=== PATIENT | female | born 1985 | race African-American/Black ===

== ENCOUNTER 2016-10-16 18:51 | Emergency (ER) | payer MEDICAID ==
[~2016-10-16] VITALS: Ht 172.7 cm; Wt 63.5 kg
[~2016-10-16 18:51] MED LIST: ANTI-ITCH28 GM TOPIC; BACTRIM DS TAB1 EAC1 ORAL; BENADRYL25 MG ORAL; BENADRYL25 MG PO; CLOTRIMAZOLE30 GM TP; IBUPROFEN800 MG ORAL; KENALOG 0.5% CR15 GM APPLIC; KENALOG IN ORABA1 EA APPLIC; NKM; POLYTRIM OP SOL10 ML OPHTHALM; PREDNISONE10 MG ORAL; PREDNISONE20 M1 PO; PREDNISONE20 MG ORAL; PREDNISONE5 M3 PO; TRAMADOL HCL50 MG ORAL; TRIAMCINOLONE A80 G1 TP; UNOBMED
[2016-10-16 19:25] VITALS: BP 132/85
--- NOTE | 2016-10-16 19:26 | Emergency Room Report ---
History of Present Illness General Chief Complaint: Chest Pain Source: Patient Present Illness HPI Patient is a 31-year-old female who presented for increased cough and difficulty breathing. The patient reported having some increased chest pain. The patient denied any fever. The patient reported having nonproductive cough. She denied any leg pain or swelling. She denied to have being . Allergies: Coded Allergies: No Known Allergies (Unverified , 05/03/13) Patient History Past Medical History: see triage record Reviewed Nursing Documentation: PMH: Agreed, PSxH: Agreed Review of Systems All Other Systems: negative except mentioned in HPI Physical Exam Vital Signs Date Time Temp Pulse Resp B/P Pulse Ox O2 Delivery O2 Flow Rate FiO2 10/16/16 19:08 98.4 90 21 132/85 96 Room Air Sp02 EP Interpretation: reviewed, normal General Appearance: normal inspection, well appearing, no apparent distress, alert, GCS 15 Head: atraumatic ENT: normal ENT inspection, hearing grossly normal, normal voice Neck: normal inspection, full range of motion, supple, no bony tend Respiratory: normal inspection, lungs clear, normal breath sounds, no respiratory distress, no retraction, no wheezing Cardiovascular #1: regular rate, rhythm, no edema Gastrointestinal: normal inspection, normal bowel sounds, non tender, soft, no guarding, no hernia Genitourinary: no CVA tenderness Musculoskeletal: normal inspection, back normal, normal range of motion Neurologic: normal inspection, alert, oriented x3, responsive, tool and die assembler III-XII nml as tested, speech normal Psychiatric: normal inspection, judgement/insight normal, mood/affect normal Skin: normal inspection, normal color, no rash Medical Decision Making Diagnostic Impression: Primary Impression: Bronchitis ER Course Patient presented for chest pain. Differential diagnosis included but was not limited to acute coronary syndrome, pulmonary embolism, pneumonia, aortic dissection, shingles, pneumothorax, aortic dissection, esophageal rupture, pericarditis. Patient's benign exam and does not appear to require any further imaging or laboratory testing at this time. Patient was noted to have good air movement. She was given prescription for albuterol inhaler.The patient is advised to follow up with primary care doctor in 1-2 days. Patient is advised to return if any worsening condition or if any changes in status that are concerning. Last Vital Signs Date Time Temp Pulse Resp B/P Pulse Ox O2 Delivery O2 Flow Rate FiO2 10/16/16 19:08 98.4 90 21 132/85 96 Room Air Status: improved Disposition: HOME, SELF-CARE Condition: Stable Scripts Albuterol Sulfate* (ALBUTEROL SULFATE MDI*) 8.5 Gm Hfa.aer.ad 2 PUFF INH Q4H Y for cough/wheezing, #1 EA 0 Refills Prov: Isaak Flood 10/16/16 Isaak Flood Oct 16, 2016 19:26
[2016-10-16] MEDS ORDERED: ALBUTEROL SULF8.5 GM INH (20:00)
[2016-10-16 20:16] VITALS: BP 132/85
--- NOTE | 2016-10-17 12:56 | Diagnostic Imaging Report ---
Indication: Chest Pain Comparison: None A single view chest radiograph was obtained. Findings: Cardiomediastinal appearance is within normal limits for age. Pulmonary vascularity is appropriate. The diaphragmatic contour is smooth and costophrenic angles are sharp. No pleural effusions are identified. The bones are unremarkable. Impression: No acute findings
== END 2016-10-16 20:16 | disposition home or self-care (01) ==
LOC: EMR 19:40
DX: J40 Bronchitis, not specified as acute or chronic (principal)
CPT/HCPCS: 71010; 99283

== ENCOUNTER 2016-10-23 15:36 | Emergency (ER) | payer MEDICAID ==
[~2016-10-23] VITALS: Ht 172.7 cm; Wt 63.5 kg
[~2016-10-23 15:36] MED LIST changes: +ALBUTEROL SULF8.5 GM INH
[2016-10-23 15:59] VITALS: BP 113/78
[2016-10-23 16:34] VITALS: BP 113/78
[2016-10-23] MEDS ORDERED: PREDNISONE20 MG ORAL (16:34)
--- NOTE | 2016-10-23 16:34 | Emergency Room Report ---
History of Present Illness General Chief Complaint: Skin Rash/Abscess Source: Patient, Medical Record Present Illness HPI 31 YO female presents to the emergency Department complaining of exacerbation of her dyshidrotic eczema on the bilateral palms x1 week. Patient states that her work is requesting a note. Patient reports that she has been using topical medication however states on occasion exacerbation will require oral steroids. Patient denies nausea, vomiting, fevers, chills, recent illness, recent travel or ill contacts.Denies CP, Palpitations, LOC, AMS, dizziness, Changes in Vision, Sensation, paresthesias, or a sudden severe headache. Allergies: Coded Allergies: No Known Allergies (Unverified , 05/03/13) Patient History Past Medical History: see triage record Past Surgical History: none Pertinent Family History: none Last Menstrual Period: 10/12/16 Now: No Immunizations: UTD Reviewed Nursing Documentation: PMH: Agreed, PSxH: Agreed Nursing Documentation-PMH Past Medical History: No History, Except For Review of Systems All Other Systems: negative except mentioned in HPI Physical Exam Vital Signs Date Time Temp Pulse Resp B/P Pulse Ox O2 Delivery O2 Flow Rate FiO2 10/23/16 15:53 97.9 72 16 113/78 100 Room Air Sp02 EP Interpretation: reviewed, normal General Appearance: no apparent distress, alert, GCS 15, non-toxic Head: normocephalic, atraumatic Eyes: bilateral eye PERRL, bilateral eye normal inspection ENT: hearing grossly normal, normal pharynx, no angioedema, normal voice Neck: full range of motion, supple/symm/no masses Respiratory: chest non-tender, lungs clear, normal breath sounds, speaking full sentences Cardiovascular #1: regular rate, rhythm, no edema Rectal: deferred Genitourinary: normal inspection, no CVA tenderness Musculoskeletal: back normal, gait/station normal, normal range of motion, non- tender, no calf tenderness Neurologic: alert, oriented x3, responsive, motor strength/tone normal, sensory intact, speech normal Psychiatric: judgement/insight normal, memory normal, mood/affect normal, no suicidal/homicidal ideation Skin: normal color, no rash, warm/dry, well hydrated, rash - bilateral skin irritation consistent with dishidrotic eczema to the palm bilaterally. Lymphatic: no adenopathy Medical Decision Making PA Attestation Dr. Lott is my supervising Physician whom patient management has been discussed with. Diagnostic Impression: Primary Impression: Dyshidrotic eczema ER Course Pt. presents to the ED c/o exacerbation of dyshidrotic eczema on the palms times one week. She has been using topical medication however states on occasion exacerbation will require oral steroids. Ddx considered but are not limited to cellulitis, scabies, shingles, varicella, dermatitis, urticaria, eczema, tinea, Vital signs: are WNL, pt. is afebrile H&PE are most consistent with dyshidrotic eczema of the bilateral palms in addition to bronchitis ORDERS: none required at this time, the diagnosis is clinical ED INTERVENTIONS: None required at this time. DISCHARGE: At this time pt. is stable for d/c to home. Will provide printed patient care instructions, and any necessary prescriptions. Care plan and follow up instructions have been discussed with the patient prior to discharge. Last Vital Signs Date Time Temp Pulse Resp B/P Pulse Ox O2 Delivery O2 Flow Rate FiO2 10/23/16 15:59 97.9 16 113/78 100 Room Air 10/23/16 15:53 72 Disposition: HOME, SELF-CARE Condition: Stable Scripts Prednisone* (PREDNISONE*) 20 Mg Tablet 40 MG ORAL DAILY for 5 Days, TAB Prov: Argentina Bassett 10/23/16 Patient Instructions: Eczema Additional Instructions: Take medications as directed. Follow up with PCP in 3-5 days Return sooner to ED if new symptoms occur, or current symptoms become worse. Argentina Bassett Oct 23, 2016 16:34
== END 2016-10-23 16:35 | disposition home or self-care (01) ==
LOC: EMR 16:35
DX: L30.1 Dyshidrosis [pompholyx] (principal); J40 Bronchitis, not specified as acute or chronic
CPT/HCPCS: 99282

== ENCOUNTER 2017-01-06 02:29 | Emergency (ER) | payer MEDICAID ==
[~2017-01-06] VITALS: Ht 172.7 cm; Wt 64.9 kg
[2017-01-06] MEDS ORDERED: TRIAMCINOLONE A80 G1 TP (02:56)
[2017-01-06] MEDS ORDERED: PREDNISONE20 MG ORAL (02:56)
--- NOTE | 2017-01-06 02:56 | Emergency Room Report ---
History of Present Illness General Chief Complaint: Skin Rash/Abscess Source: Patient Present Illness HPI Is a 31-year-old female with history of eczema. Is localized to the palm of her hands. Worse when she has lots of stress. She presents with increasing pain and skin feeling for the last 20 hours. Usually treated with steroid cream and steroid. No fever or chills. No nausea no vomiting. Nothing made it better. Touching it made it worse. Allergies: Coded Allergies: No Known Allergies (Unverified , 05/03/13) Patient History Past Medical History: see triage record, old chart reviewed Past Surgical History: other Pertinent Family History: none Social History: Denies: smoking Last Menstrual Period: 2 weeks ago Now: No Immunizations: other Reviewed Nursing Documentation: PMH: Agreed, PSxH: Agreed Review of Systems Eye: Denies: blurred vision, eye pain ENT: Denies: ear pain, nose congestion, throat swelling Respiratory: Denies: cough, shortness of breath Cardiovascular: Denies: chest pain, palpitations Gastrointestinal: Denies: abdominal pain, diarrhea, nausea, vomiting Musculoskeletal: Denies: back pain, joint pain Skin: Reports: dryness, Denies: rash Neurological: Denies: headache, numbness Endocrine: Denies: increased thirst, increased urine Hematologic/Lymphatic: Denies: easy bruising All Other Systems: negative except mentioned in HPI Physical Exam Vital Signs Date Time Temp Pulse Resp B/P Pulse Ox O2 Delivery O2 Flow Rate FiO2 01/06/17 02:37 98.6 90 16 130/89 98 Room Air vitals normal. Sp02 EP Interpretation: reviewed, normal General Appearance: well appearing, no apparent distress, alert Head: normocephalic, atraumatic Eyes: bilateral eye EOMI, bilateral eye PERRL ENT: hearing grossly normal, normal pharynx Neck: full range of motion, supple, no meningismus Respiratory: chest non-tender, lungs clear, normal breath sounds Cardiovascular #1: regular rate, rhythm, no murmur Gastrointestinal: normal bowel sounds, non tender, no mass, no organomegaly, no bruit, non-distended Musculoskeletal: back normal, gait/station normal, normal range of motion, other - palms with skin peeling and irritation Neurologic: alert, oriented x3 Psychiatric: mood/affect normal Skin: warm/dry Medical Decision Making Diagnostic Impression: Primary Impression: Eczema Qualified Codes: L30.9 - Dermatitis, unspecified ER Course Patient with exacerbation of her eczema. No evidence of bacterial infection. We'll discharge home. No evidence of necrotizing fasciitis. Last Vital Signs Date Time Temp Pulse Resp B/P Pulse Ox O2 Delivery O2 Flow Rate FiO2 01/06/17 02:37 98.6 90 16 130/89 98 Room Air Status: improved Disposition: HOME, SELF-CARE Condition: Stable Scripts Triamcinolone Acetonide (TRIAMCINOLONE ACETONIDE) 80 Gm Oint...g. 80 GM TP BID, #80 GM Prov: STEPH QIU M.D. 01/06/17 Prednisone* (PREDNISONE*) 20 Mg Tablet 60 MG ORAL DAILY, #12 TAB Prov: STEPH QIU M.D. 01/06/17 Additional Instructions: Follow up with your DrCarlos in 7 days. Return if worse. STEPH QIU M.D. Jan 06, 2017 02:56
[2017-01-06] MEDS ORDERED: PredniSONE 20mg tab ORAL ONE (03:00)
[2017-01-06 03:06] VITALS: BP 130/89
== END 2017-01-06 03:05 | disposition home or self-care (01) ==
LOC: EMR 03:00
DX: L30.9 Dermatitis, unspecified (principal)
CPT/HCPCS: 99284

== ENCOUNTER 2017-03-13 02:20 | Emergency (ER) | payer MEDICAID ==
[~2017-03-13] VITALS: Ht 175.3 cm; Wt 63.5 kg
[2017-03-13 02:35] VITALS: BP 106/69
[2017-03-13] MEDS ORDERED: PREDNISONE20 MG ORAL (02:54)
[2017-03-13] MEDS ORDERED: TRIAMCINOLONE A15 G2 TP (02:54)
[2017-03-13] MEDS ORDERED: BENADRYL25 MG ORAL (02:54)
[2017-03-13 03:05] VITALS: BP 106/69
--- NOTE | 2017-03-13 03:32 | Emergency Room Report ---
History of Present Illness General Chief Complaint: Skin Rash/Abscess Source: Patient Present Illness HPI 31YOF presents with "eczema flare up" after sun exposure today to hands. Ran out of triamcinolone. States that med usually helps plus benadryl, prednisone. Denies fever/chills. Denies DM, other comorbidities. Allergies: Coded Allergies: No Known Allergies (Unverified , 03/13/17) Patient History Past Medical History: other - eczema Past Surgical History: none Pertinent Family History: none Social History: Denies: alcohol use, drug use, smoking Last Menstrual Period: last week Now: No Immunizations: UTD Reviewed Nursing Documentation: PMH: Agreed, PSxH: Agreed Review of Systems All Other Systems: negative except mentioned in HPI Physical Exam Vital Signs Date Time Temp Pulse Resp B/P Pulse Ox O2 Delivery O2 Flow Rate FiO2 03/13/17 02:24 98.6 108 16 106/69 99 Room Air Sp02 EP Interpretation: reviewed, normal General Appearance: normal inspection, well appearing, no apparent distress, alert, GCS 15, non-toxic Head: normocephalic, atraumatic Eyes: bilateral eye EOMI, bilateral eye PERRL ENT: normal ENT inspection, hearing grossly normal, normal voice Neck: normal inspection, full range of motion, supple, no bony tend Respiratory: normal inspection, lungs clear, normal breath sounds, no respiratory distress, no retraction, no wheezing Cardiovascular #1: regular rate, rhythm, no edema Gastrointestinal: normal inspection, normal bowel sounds, non tender, soft, no guarding, no hernia Genitourinary: no CVA tenderness Musculoskeletal: normal inspection, back normal, normal range of motion, Tasha' s Sign negative Neurologic: normal inspection, alert, oriented x3, responsive, supervisor grading III-XII nml as tested, motor strength/tone normal, speech normal Psychiatric: normal inspection, judgement/insight normal, mood/affect normal Skin: normal inspection, normal color, no rash Lymphatic: normal inspection Medical Decision Making Diagnostic Impression: Primary Impression: Eczema Qualified Codes: L30.9 - Dermatitis, unspecified ER Course 31YOF with eczema flare-up. VSS. Afebrile Meds refilled Rx Prednisone, bendaryl Last Vital Signs Date Time Temp Pulse Resp B/P Pulse Ox O2 Delivery O2 Flow Rate FiO2 03/13/17 03:05 98.6 87 16 106/69 99 Room Air Status: improved Disposition: HOME, SELF-CARE Condition: Improved Scripts Prednisone* (PREDNISONE*) 20 Mg Tablet 40 MG ORAL DAILY for 5 Days, #5 TAB Prov: KERRY ADAIR M.D. 03/13/17 Diphenhydramine Hcl* (BENADRYL*) 25 Mg Capsule 25 MG ORAL Q6H Y for Itching for 7 Days, #30 CAP Prov: KERRY ADAIR M.D. 03/13/17 Triamcinolone Acetonide (TRIAMCINOLONE ACETONIDE) 15 Gm Oint...g. 15 GM TP BID for 7 Days, #1 UNIT Prov: KERRY ADAIR M.D. 03/13/17 KERRY ADAIR M.D. March 13, 2017 03:32
== END 2017-03-13 03:05 | disposition home or self-care (01) ==
LOC: EMR 03:00
DX: L30.9 Dermatitis, unspecified (principal)
CPT/HCPCS: 99284

== ENCOUNTER 2017-04-21 05:10 | Emergency (ER) | payer MEDICAID ==
[~2017-04-21] VITALS: Ht 172.7 cm; Wt 59.0 kg
[~2017-04-21 05:10] MED LIST changes: +TRIAMCINOLONE A15 G2 TP
[2017-04-21 05:25] VITALS: BP 118/75
--- NOTE | 2017-04-21 05:33 | Emergency Room Report ---
History of Present Illness General Chief Complaint: Skin Rash/Abscess Source: Patient Present Illness HPI Is a 31-year-old female with a history of eczema. She presents with exacerbation of her eczema. She also has 2 other complaint. One is of rash to her lip that started yesterday. Another one is a spider bite to her right lower leg. His been ongoing for 3 or 4 days and draining yesterday. No fever chills but no nausea vomiting. No other complaint. Allergies: Coded Allergies: No Known Allergies (Unverified , 03/13/17) Patient History Past Medical History: see triage record, old chart reviewed Past Surgical History: other Pertinent Family History: none Social History: Denies: smoking Last Menstrual Period: April Now: No Immunizations: other Reviewed Nursing Documentation: PMH: Agreed, PSxH: Agreed Review of Systems Eye: Denies: blurred vision, eye pain ENT: Denies: ear pain, nose congestion, throat swelling Respiratory: Denies: cough, shortness of breath Cardiovascular: Denies: chest pain, palpitations Gastrointestinal: Denies: abdominal pain, diarrhea, nausea, vomiting Musculoskeletal: Denies: back pain, joint pain Skin: Denies: rash Neurological: Denies: headache, numbness Endocrine: Denies: increased thirst, increased urine Hematologic/Lymphatic: Denies: easy bruising All Other Systems: negative except mentioned in HPI Physical Exam Vital Signs Date Time Temp Pulse Resp B/P Pulse Ox O2 Delivery O2 Flow Rate FiO2 04/21/17 05:16 97.9 73 18 118/75 98 Room Air vitals normal Sp02 EP Interpretation: reviewed, normal General Appearance: well appearing, no apparent distress, alert Head: normocephalic, atraumatic Eyes: bilateral eye EOMI, bilateral eye PERRL ENT: hearing grossly normal, normal pharynx, other - Vesicular lesion to left lateral lip. Neck: full range of motion, supple, no meningismus Respiratory: chest non-tender, lungs clear, normal breath sounds Cardiovascular #1: regular rate, rhythm, no murmur Gastrointestinal: normal bowel sounds, non tender, no mass, no organomegaly, no bruit, non-distended Musculoskeletal: back normal, gait/station normal, normal range of motion, other - 1 cm indurated area to the right lateral leg. Necrotic center with previous drainage. No fluctuant. Nothing to I&D. Neurologic: alert, oriented x3 Psychiatric: mood/affect normal Skin: warm/dry, other - skin breakdown to bilateral arm. Fissures at the base of the palm. Medical Decision Making Diagnostic Impression: Primary Impression: Eczema Qualified Codes: L30.9 - Dermatitis, unspecified ER Course Patient presents with 2 issue. One is exacerbation of her eczema. She wanted to be on steroids but because of her of infection I will hold off. She can started a week after now. We'll also put her on Bactrim for abscess to lower extremity. Nothing to I&D. She also has herpes. We'll put on valtrex Last Vital Signs Date Time Temp Pulse Resp B/P Pulse Ox O2 Delivery O2 Flow Rate FiO2 04/21/17 05:16 97.9 73 18 118/75 98 Room Air Status: unchanged Disposition: HOME, SELF-CARE Condition: Stable Scripts Methylprednisolone (MEDROL) 4 Mg Tab.ds.pk 4 MG PO DAILY, #1 PACK Prov: STEPH QIU M.D. 04/21/17 Hydrocortisone (Hydrocortisone Cream 2.5%) Y Cream.appl 1 APPLIC TP BID, #30 GM Prov: STEPH QIU M.D. 04/21/17 Valacyclovir Hcl* (VALTREX*) 500 Mg Tablet 1000 MG ORAL TWICE A DAY for 7 Days, TAB Prov: STEPH QIU M.D. 04/21/17 Trimethoprim/Sulfamethoxazole 160/800* (BACTRIM DS TABLET*) 1 Each Tablet 1 TAB ORAL Q12H, #14 TAB 0 Refills Prov: STEPH QIU M.D. 04/21/17 Additional Instructions: Dont use steroid pack for one week. Follow up with your doctor in 7 days. Return if worse. STEPH QIU M.D. Apr 21, 2017 05:33
[2017-04-21] MEDS ORDERED: MEDROL4 M1 PO (05:40)
[2017-04-21] MEDS ORDERED: HYDROCORTISONE30 G2 TP (05:40)
[2017-04-21] MEDS ORDERED: BACTRIM DS TAB1 EAC1 ORAL (05:40)
[2017-04-21] MEDS ORDERED: VALACYCLOVIR500 MG ORAL (05:40)
[2017-04-21 05:45] VITALS: BP 118/75
== END 2017-04-21 05:45 | disposition home or self-care (01) ==
LOC: EMR 05:40
DX: L30.9 Dermatitis, unspecified (principal)
CPT/HCPCS: 99284

== ENCOUNTER 2017-04-22 09:50 | Emergency (ER) | payer MEDICAID ==
[~2017-04-22] VITALS: Ht 172.7 cm; Wt 59.0 kg
[~2017-04-22 09:50] MED LIST changes: +HYDROCORTISONE30 G2 TP; +MEDROL4 M1 PO; +VALACYCLOVIR500 MG ORAL
[2017-04-22 10:11] VITALS: BP 117/75
[2017-04-22 10:15] VITALS: BP 117/75
--- NOTE | 2017-04-24 17:06 | Emergency Room Report ---
History of Present Illness General Chief Complaint: Skin Rash/Abscess Present Illness HPI 31-year-old female presents to ED for evaluation. Patient is here complaining of a cold sore around her lips. Was seen here recently and was prescribed antiviral medication. States that the cold sore has gotten worse but she did not fill the medication. Pain is a 6/10, throbbing, nonradiating. Denies fevers or chills. Denies discharge. No other aggravating or relieving factors. Denies any other associated symptoms Allergies: Coded Allergies: No Known Allergies (Unverified , 03/13/17) Patient History Past Medical History: none Past Surgical History: none Pertinent Family History: none Social History: Denies: alcohol use, drug use, smoking Last Menstrual Period: 04/14/17 Now: No Immunizations: UTD Reviewed Nursing Documentation: PMH: Agreed, PSxH: Agreed Nursing Documentation-PMH Past Medical History: No Stated History Review of Systems All Other Systems: negative except mentioned in HPI Physical Exam Vital Signs Date Time Temp Pulse Resp B/P Pulse Ox O2 Delivery O2 Flow Rate FiO2 04/22/17 09:55 97.9 99 16 117/75 98 Room Air Sp02 EP Interpretation: reviewed, normal General Appearance: no apparent distress, alert, GCS 15, non-toxic Head: normocephalic Eyes: bilateral eye PERRL, bilateral eye normal inspection ENT: normal ENT inspection Neck: normal inspection Respiratory: normal inspection Cardiovascular #1: normal inspection Gastrointestinal: normal inspection Rectal: deferred Genitourinary: no CVA tenderness Musculoskeletal: normal inspection Neurologic: alert, oriented x3, responsive, motor strength/tone normal, sensory intact, speech normal Psychiatric: judgement/insight normal, memory normal, mood/affect normal, no suicidal/homicidal ideation Skin: rash - multiple vesicular lesions around the mouth Lymphatic: normal inspection Medical Decision Making Diagnostic Impression: Primary Impression: Cold sore Additional Impression: eczema ER Course Hospital Course 31-year-old female presents to ED with multiple blisters to the mouth Differential diagnoses include: Cellulitis, dermatitis, insect bite, abscess Clinical course Patient placed on stretcher. After initial history, physical exam reveals a young female in no acute distress. On exam there are multiple vesicular lesions noted around the mouth. Consistent with viral infection She was seen here recently and was prescribed valacyclovir. Patient states she did not fill the medication because she was not sure was the right prescription. I assured the patient that it is the right prescription to treat her condition Diagnosis - cold sore, ezcema stable and discharged to home. take meds as directed. Instructed to followup with PMD. Instructed return to ED if symptoms recur or worsen Last Vital Signs Date Time Temp Pulse Resp B/P Pulse Ox O2 Delivery O2 Flow Rate FiO2 04/22/17 10:15 97.9 99 16 117/75 98 Room Air Status: improved Disposition: HOME, SELF-CARE Condition: Stable Referrals: [facility]ERR[facility] (PCP) Patient Instructions: Cold Sore, [id number] Additional Instructions: take your medications as directed. f/up with dermatology FERMIN ARDON M.D. Apr 24, 2017 17:06
== END 2017-04-22 10:15 | disposition home or self-care (01) ==
LOC: EMR 10:10
DX: B00.1 Herpesviral vesicular dermatitis (principal); L30.9 Dermatitis, unspecified
CPT/HCPCS: 99282

== ENCOUNTER 2018-01-12 00:01 | Emergency (ER) | payer MEDICAID ==
[~2018-01-12] VITALS: Ht 172.7 cm; Wt 59.0 kg
[2018-01-12 00:15] VITALS: BP 105/51
[2018-01-12 00:30] VITALS: BP 105/51
[2018-01-12] MEDS ORDERED: KENALOG 0.1% CR15 GM APPLIC (00:33)
[2018-01-12] MEDS ORDERED: PREDNISONE20 MG ORAL (00:33)
--- NOTE | 2018-01-12 00:33 | Emergency Room Report ---
History of Present Illness General Chief Complaint: Skin Rash/Abscess Source: Patient Present Illness HPI Is a 32-year-old female with a history of eczema. She presents with chief complaint of an eczema outbreak. His it is usually due to stress. What triggers stress is the anniversary of the of her baby father's. She said it was much better since she is cut down smoking and drinking more water. The outbreak occur few days ago. Mostly on her hand. Start with killing and then cracking. Usually needs steroid. Denies any nausea vomiting. Denies any fever chills. Denies any other complaint. Similar to previous episodes. Allergies: Coded Allergies: No Known Allergies (Unverified , 03/13/17) Patient History Past Medical History: see triage record, old chart reviewed Past Surgical History: other Pertinent Family History: none Social History: Reports: smoking Last Menstrual Period: 11/30/17 Now: No Immunizations: other Reviewed Nursing Documentation: PMH: Agreed; PSxH: Agreed Nursing Documentation-PMH Past Medical History: No History, Except For Review of Systems Eye: Denies: eye pain, blurred vision ENT: Denies: ear pain, nose congestion, throat swelling Respiratory: Denies: cough, shortness of breath Cardiovascular: Denies: chest pain, palpitations Gastrointestinal: Denies: abdominal pain, diarrhea, nausea, vomiting Musculoskeletal: Denies: back pain, joint pain Skin: Reports: rash Neurological: Denies: headache, numbness Endocrine: Denies: increased thirst, increased urine Hematologic/Lymphatic: Denies: easy bruising All Other Systems: negative except mentioned in HPI Physical Exam Vital Signs Date Time Temp Pulse Resp B/P (MAP) Pulse Ox O2 Delivery O2 Flow Rate FiO2 01/12/18 00:11 98.2 98 16 105/51 99 98.2 vitals normal Sp02 EP Interpretation: reviewed, normal General Appearance: well appearing, no apparent distress, alert Head: normocephalic, atraumatic Eyes: bilateral eye PERRL, bilateral eye EOMI ENT: hearing grossly normal, normal pharynx Neck: full range of motion, supple, no meningismus Respiratory: chest non-tender, lungs clear, normal breath sounds Cardiovascular #1: regular rate, rhythm, no murmur Gastrointestinal: normal bowel sounds, non tender, no mass, no organomegaly, no bruit, non-distended Musculoskeletal: back normal, gait/station normal, normal range of motion, other - Palms of both hands show cracking and hyper keratosis. Patient claimed this is new but appear chronic to me. Psychiatric: mood/affect normal Skin: warm/dry Medical Decision Making Diagnostic Impression: Primary Impression: Dyshidrotic eczema ER Course Patient with eczema outbreak. No evidence of cellulitis. We'll discharge home with steroid. Last Vital Signs Date Time Temp Pulse Resp B/P (MAP) Pulse Ox O2 Delivery O2 Flow Rate FiO2 01/12/18 00:11 98.2 98 16 105/51 99 98.2 Status: unchanged Disposition: HOME, SELF-CARE Condition: Stable Scripts Triamcinolone Acet (Triamcinolone Acetonide) 80 Gm Cream..g. 1 ML APPLIC BID, #80 GM Prov: STEPH QIU M.D. 01/12/18 Prednisone* (PREDNISONE*) 20 Mg Tablet 20 MG ORAL DAILY, #10 TAB Prov: STEPH QIU M.D. 01/12/18 Patient Instructions: Rash Additional Instructions: Follow-up with your DrCarlos in 7 days. Return if worse. STEPH QIU M.D. Jan 12, 2018 00:33
== END 2018-01-12 00:50 | disposition home or self-care (01) ==
LOC: EMR 00:41
DX: L30.1 Dyshidrosis [pompholyx] (principal)
CPT/HCPCS: 99284

== ENCOUNTER 2018-03-07 21:50 | Emergency (ER) | payer MEDICAID ==
[~2018-03-07] VITALS: Ht 172.7 cm; Wt 62.6 kg
[~2018-03-07 21:50] MED LIST changes: +KENALOG 0.1% CR15 GM APPLIC
[2018-03-07] MEDS ORDERED: IBUPROFEN600 MG ORAL (22:30)
--- NOTE | 2018-03-07 22:31 | Emergency Room Report ---
History of Present Illness General Chief Complaint: Pain Source: Patient Present Illness HPI Is a 32-year-old female with no past medical history. She presents with chief complaint of chest pain/breast pain. Onset for about a week. She has a small lump in that area for a long period of time. Seemed to be getting worse. It's movable. No fever chills. No drainage. No shortness of breath. Worse with palpation. Pain is 8 out of 10. Allergies: Coded Allergies: No Known Allergies (Unverified , 03/07/18) Patient History Past Medical History: see triage record, old chart reviewed Past Surgical History: none Pertinent Family History: none Social History: Reports: smoking Last Menstrual Period: 02/25/2018 Now: No Immunizations: other Reviewed Nursing Documentation: PMH: Agreed; PSxH: Agreed Nursing Documentation-PMH Past Medical History: No History, Except For Review of Systems Eye: Denies: eye pain, blurred vision ENT: Denies: ear pain, nose congestion, throat swelling Respiratory: Denies: cough, shortness of breath Cardiovascular: Denies: chest pain, palpitations Gastrointestinal: Denies: abdominal pain, diarrhea, nausea, vomiting Musculoskeletal: Denies: back pain, joint pain Skin: Denies: rash Neurological: Denies: headache, numbness Endocrine: Denies: increased thirst, increased urine Hematologic/Lymphatic: Denies: easy bruising All Other Systems: negative except mentioned in HPI Physical Exam Vital Signs Date Time Temp Pulse Resp B/P (MAP) Pulse Ox O2 Delivery O2 Flow Rate FiO2 03/07/18 21:53 98.6 97 18 115/86 97 Room Air 98.6 Sp02 EP Interpretation: reviewed, normal General Appearance: well appearing, no apparent distress, alert Head: normocephalic, atraumatic Eyes: bilateral eye PERRL, bilateral eye EOMI ENT: hearing grossly normal, normal pharynx Neck: full range of motion, supple, no meningismus Respiratory: chest non-tender, lungs clear, normal breath sounds, other - Chest exam: Just to the right sternal area the around the cleavage area, there is a small will be fibrous tissue. Tender to palpation. No abscess noted. No redness. No other mass palpated. No dimpling of the skin no retraction of the nipple Cardiovascular #1: regular rate, rhythm, no murmur Gastrointestinal: normal bowel sounds, non tender, no mass, no organomegaly, no bruit, non-distended Musculoskeletal: back normal, gait/station normal, normal range of motion Psychiatric: mood/affect normal Skin: warm/dry Procedures Additional Procedure Procedure Narrative Procedure: Needle aspiration Indication: Mass Description: Area cleaned with chlorhexidine. Local anesthetic 1% lidocaine with epinephrine. Total of 1 mL injected. Using an 18-gauge needle, I aspirated the most indurated area. Nothing aspirated. No pus expressed. Patient tolerated procedure without any problem. No complication. Medical Decision Making Diagnostic Impression: Primary Impression: Fibrocystic changes of right breast ER Course Patient with fibrocystic changes of the right breast area. I did an aspiration to see there is any pus and was negative. Patient is otherwise low risk for breast cancer. No evidence of ACS, PE, dissection. We'll discharge home with recommendation for outpatient mammography. Last Vital Signs Date Time Temp Pulse Resp B/P (MAP) Pulse Ox O2 Delivery O2 Flow Rate FiO2 03/07/18 21:53 98.6 97 18 115/86 97 Room Air 98.6 Status: improved Disposition: HOME, SELF-CARE Condition: Stable Scripts Ibuprofen* (MOTRIN*) 600 Mg Tablet 600 MG ORAL THREE TIMES A DAY, #30 TAB 0 Refills Prov: STEPH QIU M.D. 03/07/18 Referrals: [facility],REFERRING (PCP) Additional Instructions: Follow-up your doctor in 7 days. Recommend outpatient mammography and/or ultrasound. Return if symptom worsen. STEPH QIU M.D. March 07, 2018 22:31
[2018-03-07 22:56] VITALS: BP 121/80
[2018-03-07 22:57] VITALS: BP 115/86
== END 2018-03-07 22:57 | disposition home or self-care (01) ==
LOC: EMR 22:04
DX: N60.11 Diffuse cystic mastopathy of right breast (principal)
CPT/HCPCS: 99283

== ENCOUNTER 2018-11-06 08:56 | Emergency (ER) | payer MEDICAID ==
[~2018-11-06] VITALS: Ht 172.7 cm; Wt 63.5 kg
[~2018-11-06 08:56] MED LIST changes: +IBUPROFEN600 MG ORAL
[2018-11-06 08:58] VITALS: BP 116/73
--- NOTE | 2018-11-06 09:40 | Emergency Room Report ---
History of Present Illness General Chief Complaint: Skin Rash/Abscess Source: Patient Present Illness HPI This patient states she has a history of dyshidrotic eczema. She states that she had been doing fine for a long time. However, she states she had a very bad flareup yesterday. She states she gets very severe dyshidrotic eczema. She states that the right hand is especially itchy. She gets fluid filled blisters on this hand. She states she has difficulty not scratching the hand. She states that in the past she has had to get oral prednisone. She has no other complaints. She denies fever or chills. She has nausea or vomiting. Allergies: Coded Allergies: No Known Allergies (Unverified , 03/07/18) Patient History Past Medical History: see triage record, other - dishydrodic eczema Social History: Reports: smoking; Denies: alcohol use, drug use Last Menstrual Period: 10/30/18 Now: No Reviewed Nursing Documentation: PMH: Agreed; PSxH: Agreed Nursing Documentation-PMH Past Medical History: No Stated History Review of Systems All Other Systems: negative except mentioned in HPI Physical Exam Vital Signs Date Time Temp Pulse Resp B/P (MAP) Pulse Ox O2 Delivery O2 Flow Rate FiO2 11/06/18 08:58 98.2 15 116/73 96 Room Air 11/06/18 08:58 79 Sp02 EP Interpretation: reviewed, normal General Appearance: no apparent distress, alert, GCS 15, non-toxic Head: normocephalic, atraumatic Eyes: bilateral eye normal inspection, bilateral eye PERRL ENT: hearing grossly normal, normal pharynx, no angioedema, normal voice Neck: normal inspection Respiratory: no respiratory distress, no retraction, no accessory muscle use, speaking full sentences Rectal: deferred Musculoskeletal: normal inspection, gait/station normal Neurologic: alert, oriented x3, responsive, motor strength/tone normal, sensory intact, speech normal Psychiatric: judgement/insight normal, memory normal, mood/affect normal, no suicidal/homicidal ideation Skin: warm/dry, well hydrated, other - Bilateral palms of hands with cracking, peeling skin, swelling and pustules. R>L. Lymphatic: no adenopathy Medical Decision Making Diagnostic Impression: Primary Impression: Eczema, dyshidrotic ER Course This patient has rapid onset and severe dyshidrotic eczema. She is also scratching the right hand and has excoriations and findings for possible early bacterial superinfection. There is no obvious cellulitis on examination. However, I feel that I should place this patient on a course of antibiotics as a precaution. He will also place the patient on oral prednisone and topical prednisone in addition to emollients. The patient has a long history of dyshidrotic eczema and is educated on prevention and skin care. She was given close return precautions and follow-up instructions. Last Vital Signs Date Time Temp Pulse Resp B/P (MAP) Pulse Ox O2 Delivery O2 Flow Rate FiO2 11/06/18 08:58 98.2 79 15 116/73 96 Room Air Status: improved Disposition: HOME, SELF-CARE Condition: Improved Maggi Lott DO Nov 06, 2018 09:40
[2018-11-06] MEDS ORDERED: PREDNISONE20 MG ORAL (09:46)
[2018-11-06] MEDS ORDERED: DOXYCYCLINE MO100 MG ORAL (09:46)
[2018-11-06] MEDS ORDERED: AQUAPHOR HEALIN50 GM TP (09:46)
[2018-11-06] MEDS ORDERED: KENALOG1 APPLIC TOPIC (09:46)
[2018-11-06 09:52] VITALS: BP 121/80
--- NOTE | 2018-11-06 09:52 | NUR ---
ED Nurse Note: Pt was seen due to rashes and skin lesions on her right hand. Pt cleared by health care provider for discharge. ACI given and explained to pt and verbalized understanding. All medical devices such as ID band removed. Pt left with all personal belongings. Pt is AAO x4 and ambulates with steady gait.
== END 2018-11-06 09:52 | disposition home or self-care (01) ==
LOC: EMR 09:30
DX: L30.1 Dyshidrosis [pompholyx] (principal)
CPT/HCPCS: 99282

== ENCOUNTER 2019-01-27 11:45 | Emergency (ER) | payer MEDICAID ==
[~2019-01-27] VITALS: Ht 172.7 cm; Wt 63.5 kg
[~2019-01-27 11:45] MED LIST changes: +AQUAPHOR HEALIN50 GM TP; +DOXYCYCLINE MO100 MG ORAL; +KENALOG1 APPLIC TOPIC
[2019-01-27] MEDS ORDERED: NKM (11:50)
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
[2019-01-27 12:02] VITALS: BP 121/72
[2019-01-27] MEDS ORDERED: NORCO 5-325 TA1 EACH ORAL (13:14)
[2019-01-27] MEDS ORDERED: IBUPROFEN600 MG ORAL (13:14)
[2019-01-27] MEDS ORDERED: CYCLOBENZAPRINE10 MG ORAL (13:14)
[2019-01-27 13:20] VITALS: BP 121/72
--- NOTE | 2019-01-27 13:20 | NUR ---
ER DISCHARGE NOTE: Patient is cleared to be discharged per ERMD, pt is aox4, on room air, with stable vital signs. pt was given dc and prescription instructions, pt was able to verbalize understanding, pt id band removed without complications. pt is able to ambulate with steady gait. pt took all belongings.
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
--- NOTE | 2019-01-27 14:02 | Diagnostic Imaging Report ---
Indication: Trauma, pain Technique: 3 views of the cervical spine Comparison: none Findings: . Prevertebral soft tissue swelling. Bony alignment is normal. Vertebral body heights are preserved. There is minimal degenerative disc disease at C7-T1. Impression: No acute bony trauma
--- NOTE | 2019-01-28 17:56 | Diagnostic Imaging Report ---
Indication: Trauma, pain Technique: 3 views of the lumbar spine Comparison: None Findings: Bony alignment is normal. Vertebral body heights are preserved. The disc spaces are preserved. The pedicles are intact. Impression: Negative This agrees with the preliminary interpretation provided by the emergency room physician
== END 2019-01-27 13:20 | disposition home or self-care (01) ==
LOC: EMR 12:34
DX: S39.012A Strain of muscle, fascia and tendon of lower back, initial encounter (principal); S16.1XXA Strain of muscle, fascia and tendon at neck level, initial encounter; V49.9XXA Car occupant (driver) (passenger) injured in unspecified traffic accident, initial encounter; Y92.410 Unspecified street and highway as the place of occurrence of the external cause
CPT/HCPCS: 72020; 72040; 99284

== ENCOUNTER 2019-04-26 18:26 | Emergency (ER) | payer MEDICAID ==
[~2019-04-26] VITALS: Ht 172.7 cm; Wt 68.0 kg
[~2019-04-26 18:26] MED LIST changes: +CYCLOBENZAPRINE10 MG ORAL; +NORCO 5-325 TA1 EACH ORAL
[2019-04-26] MEDS ORDERED: PRENATAL 19 CH1 EACH PO (18:57)
[2019-04-26 19:20] VITALS: BP 110/71
--- NOTE | 2019-04-26 19:20 | Emergency Room Report ---
History of Present Illness General Chief Complaint: Skin Rash/Abscess Source: Patient Present Illness HPI 33-year-old female, no past medical history, no surgical history presents with a bump behind her left ear, slightly tender to palpation per patient she endorses a slight ache, aggravated with touch alleviated with rest, she was concerned, she denies any fevers chills chest pain shortness of breath, she denies any mouth pain, patient states she is currently , she is want to see what the lump was, started 2 days prior to arrival Allergies: Coded Allergies: No Known Allergies (Unverified , 03/07/18) Patient History Past Medical History: see triage record Now: Yes - 16 weeks Reviewed Nursing Documentation: PMH: Agreed; PSxH: Agreed Nursing Documentation-PMH Past Medical History: No History, Except For Review of Systems Constitutional: Denies: chills, fever Eye: Denies: blurred vision, double vision ENT: Denies: throat pain, nasal discharge Respiratory: Denies: cough, shortness of breath Cardiovascular: Denies: chest pain, palpitations Gastrointestinal: Denies: abdominal pain, diarrhea, nausea, vomiting Genitourinary: Denies: pain Musculoskeletal: Denies: back pain, muscle pain Skin: Reports: lesions - Bump behind left ear; Denies: rash Neurological: Denies: headache, focal weakness Hematologic/Lymphatic: Denies: easy bleeding, easy bruising All Other Systems: negative except mentioned in HPI Physical Exam Vital Signs Date Time Temp Pulse Resp B/P (MAP) Pulse Ox O2 Delivery O2 Flow Rate FiO2 04/26/19 18:54 98.4 82 17 110/71 (84) 99 Room Air Sp02 EP Interpretation: reviewed, normal General Appearance: well appearing, no apparent distress, alert Head: normocephalic, atraumatic Eyes: bilateral eye PERRL, bilateral eye EOMI ENT: uvula midline, moist mucus membranes Neck: supple, thyroid normal, supple/symm/no masses Respiratory: lungs clear, no respiratory distress, no retraction, no accessory muscle use Cardiovascular #1: normal peripheral pulses, regular rate, rhythm, no edema, no gallop, no murmur Gastrointestinal: non tender, soft, no guarding, no rebound Musculoskeletal: normal inspection Neurologic: alert, oriented x3 Psychiatric: mood/affect normal Skin: no rash, warm/dry, other - Left ear: A slight raised lesion is felt behind the left ear, no erythema, no fluctuance, mild tender to palpation Medical Decision Making Diagnostic Impression: Primary Impression: Rash and other nonspecific skin eruption ER Course She presents with a raised skin lesion, not tender to palpation, no erythema, there is mild tenderness to palpation, possible lymph node, do not suspect abscess, do not suspect cellulitis, patient counseled to follow-up with an ENT, return precautions were discussed, patient states she has a doctor's appointment , she was just concerned, states she will follow-up with her PCP Last Vital Signs Date Time Temp Pulse Resp B/P (MAP) Pulse Ox O2 Delivery O2 Flow Rate FiO2 04/26/19 18:54 98.4 82 17 110/71 (84) 99 Room Air Disposition: HOME, SELF-CARE Condition: Stable Referrals: [facility] Patient Instructions: Rash Additional Instructions: The patient was provided with discharge instructions, notified to follow-up with a primary care doctor and or specialist in the next 24-48 hours, and to return to the ED if they have worsening of their symptoms. Please note that this report is being documented using [employer] technology. This can lead to erroneous entry secondary to incorrect interpretation by the dictating instrument. Follow-up with ENT specialist Dylan Harris M.D. Apr 26, 2019 19:20
--- NOTE | 2019-04-26 19:21 | NUR ---
ED Nurse Note:pt. came with swelling behind left ear for 2 days, she is 16 weeks
[2019-04-26 20:03] VITALS: BP 115/70
--- NOTE | 2019-04-26 20:03 | NUR ---
ED Nurse Note: pt cleared to be d/c per ER provider, pt discharge and aftercare instruction provided, pt education done via discussion and handout, pt advised to follow up with pcp or return to ed if changes in condition, vss, ambulatory w/ steady gait, left w/ all belongings.
== END 2019-04-26 20:03 | disposition home or self-care (01) ==
LOC: EMR 19:29
DX: O99.712 Diseases of the skin and subcutaneous tissue complicating pregnancy, second trimester (principal); Z3A.16 16 weeks gestation of pregnancy; R21 Rash and other nonspecific skin eruption
CPT/HCPCS: 99281

== ENCOUNTER 2019-07-16 19:56 | Emergency (ER) | payer MEDICAID ==
[~2019-07-16] VITALS: Ht 172.7 cm; Wt 87.1 kg
[~2019-07-16 19:56] MED LIST changes: +PRENATAL 19 CH1 EACH PO
--- NOTE | 2019-07-16 20:10 | NUR ---
ED Nurse Note: REcieved pt from home, awake, alert and oriented x 4, pt here with c/o abdominal pain and 27 weeks , pt denies bleeding and assisted to bathroom to check, no bleeding or discharge noted, pt urine collected and assisted to bed, pt denies cp, sob, nausea or vomiting and states pain for about 2 hours [employer], pt denies any other complaitns or discomforts, pt gowned and on gurney.
[2019-07-16 20:25] VITALS: BP 114/61
--- NOTE | 2019-07-16 20:25 | NUR ---
ED Nurse Note: Pt had discussion with MD then called her family and decided ot go to another hospital, pt wants to go to where OB is in place and she feels more comfortable, spoke with pt and discussed we can care for her here also but pt wants to go to [facility], pt denies any changes, ambulatory with steady gait, signed AMA form, no increased distress noted while pt leaving, spoke with pt again as she was leaving and offerd to care for her, pt continued to refuse and very thankful.
--- NOTE | 2019-07-16 20:58 | Emergency Room Report ---
History of Present Illness General Chief Complaint: Complications Source: Patient Present Illness HPI 34-year-old female presents ED for evaluation. Complaining of cramping pain in the lower abdomen which started around 2 hours ago. Cramping, 5 out of 10, nonradiating. States she is about 27 weeks . Denies any vaginal bleeding. States she is receiving care. Denies nausea or vomiting. Denies fevers or chills. No other aggravating relieving factors. Denies any other associated symptoms Allergies: Coded Allergies: No Known Allergies (Unverified , 03/07/18) Patient History Past Medical History: none Past Surgical History: none Pertinent Family History: none Social History: Denies: smoking, alcohol use, drug use Now: No - 27 WEEKS : 2 Para: 1 Immunizations: UTD Reviewed Nursing Documentation: PMH: Agreed; PSxH: Agreed Nursing Documentation-PMH Past Medical History: No History, Except For Review of Systems All Other Systems: negative except mentioned in HPI Physical Exam Vital Signs Date Time Temp Pulse Resp B/P (MAP) Pulse Ox O2 Delivery O2 Flow Rate FiO2 07/16/19 20:00 98.6 77 22 114/61 (78) 94 Room Air Sp02 EP Interpretation: reviewed, normal General Appearance: no apparent distress, alert, GCS 15, non-toxic Head: normocephalic, atraumatic Eyes: bilateral eye normal inspection, bilateral eye PERRL ENT: hearing grossly normal, normal pharynx, no angioedema, normal voice Neck: full range of motion, supple/symm/no masses Respiratory: chest non-tender, lungs clear, normal breath sounds, speaking full sentences Cardiovascular #1: regular rate, rhythm, no edema Cardiovascular #2: 2+ carotid (R), 2+ carotid (L), 2+ radial (R), 2+ radial (L) , 2+ dorsalis pedis (R), 2+ dorsalis pedis (L) Gastrointestinal: normal bowel sounds, soft, non-distended, no guarding, no rebound, other - gravid uterus Rectal: deferred Genitourinary: normal inspection, no CVA tenderness Musculoskeletal: back normal, gait/station normal, normal range of motion, non- tender Neurologic: alert, oriented x3, responsive, motor strength/tone normal, sensory intact, speech normal Psychiatric: judgement/insight normal, memory normal, mood/affect normal, no suicidal/homicidal ideation Reflexes: 3+ bicep (R), 3+ bicep (L), 3+ tricep (R), 3+ tricep (L), 3+ knee (R) , 3+ knee (L) Lymphatic: no adenopathy Medical Decision Making Diagnostic Impression: Primary Impression: Complication of Qualified Codes: O26.93 - related conditions, unspecified, third trimester ER Course Hospital Course 34-year-old female presents with lower abdominal pain cramping. 27 weeks Differential diagnoses include: gastrits, gastroenterits, ectopic , ovarian torsion/cyst, UTI Clinical course Patient placed on stretcher in ED. After initial history and physical I discussed that we do not have labor and delivery here nor do we have monitoring. I explained that we can start work-up including labs and get an ultrasound. However patient may need possible transfer to hospital with labor and delivery Initially agreed to work-up and then patient stated she would prefer go to another hospital Understands the risks of leaving. Patient has competency to make her own decisions. Signed AMA form. Diagnosis - complication of patient left AMA Last Vital Signs Date Time Temp Pulse Resp B/P (MAP) Pulse Ox O2 Delivery O2 Flow Rate FiO2 07/16/19 20:25 98.6 22 114/61 94 Room Air 07/16/19 20:00 77 Status: unchanged Disposition: AGAINST MEDICAL ADVICE Condition: Stable Cornelius Hartman MD Jul 16, 2019 20:58
== END 2019-07-16 20:25 | disposition left against medical advice (07) ==
LOC: EMR 20:25
DX: O26.892 Other specified pregnancy related conditions, second trimester (principal); R10.30 Lower abdominal pain, unspecified; Z3A.27 27 weeks gestation of pregnancy
CPT/HCPCS: 99282